=== PATIENT | male | born 1955 | race Caucasian/White ===

== ENCOUNTER 2020-05-15 08:27 | Emergency (ER) | payer OTHER, SELFPAY ==
[2020-05-15 08:57] VITALS: PULSE 60; RESP 16; TEMP 37; O2SAT 95; BMI 32.5
[2020-05-15 09:08] VITALS: BP 133/82; PULSE 53; RESP 20; O2SAT 94
[2020-05-15 09:16] LABS: Basophils % 0.7 %; Eosinophils # 0.3 10^3/uL (0.0-0.8); Eosinophils % 4.1 %; Hematocrit 47.7 % (42.0-52.0); Hemoglobin 15.7 g/dL (11.7-16.6); Lymphocytes # 1.8 10^3/uL (0.8-4.8); Lymphocytes % 29.9 %; Mean Corpuscular HGB Conc 32.9 g/dL (30.0-36.0); Mean Corpuscular Volume 91.2 fL (80-94); Mean Platelet Volume 10.7 fL (7.4-10.4); Monocytes # 0.5 10^3/uL (0.2-0.9); Monocytes % 8.8 %; Neutrophils # 3.4 10^3/uL (1.8-7.7); Neutrophils % 56.2 %; Nucleated Red Blood Cells % 0 %; Platelet Count 187 10^3/cmm (130-400); Red Blood Count 5.23 10^6/uL (4.1-5.3); Red Cell Distribution Width 12.1 % (12.1-15.1); White Blood Count 6.1 10^3/uL (4.0-10.0)
--- NOTE | 2020-05-15 09:17 | CT_ITS ---
WS: [id number] CT ABDOMEN AND PELVIS WITH CONTRAST HISTORY: RLQ pain; bloody stools TECHNIQUE: Imaging performed of the abdomen and pelvis with IV contrast. Single phase imaging of the abdomen. Coronal and sagittal reformats are submitted. All CT scans at [facility] use at least one of these dose optimization techniques: automated exposure control; mA and/or kV adjustment per patient size (includes targeted exams where dose is matched to clinical indication); or iterativ e reconstruction. IV CONTRAST: Omnipaque 300; 95 mL IV. Oral contrast: No DLP: 1565.07 mGy.cm COMPARISON: None available. Lower thorax: Lung bases are clear. Heart is normal size. No hiatal hernia. Liver/biliary system: Normal size with no intrahepatic dilatation. Gallbladder: Prior cholecystectomy. Pancreas: Normal. Spleen: Normal. Adrenal glands: Normal. Right kidney: Normal. Left kidney: Normal. Aorta: Mild atherosclerosis with no aneurysm. Lymphadenopathy: None. Free fluid: None. GI tract: Normal appendix. No GI tract obstruction. Mild lipomatous changes at the cecum are noted. T here is a lobulated soft tissue mass with fatty changes near the hepatic flexure measuring 3.5 x 2.5 x 1.9 cm. Due to size this could be causing some bleeding or intermittent obstruction/intussusception . A few scattered diverticula. No acute diverticulitis. Abdominal wall: Unremarkable abdominal wall. No hernia. Pelvis: Well-distended urinary bladder. No free fluid. Bones: Unremarkable. Notified KYLEE Leo at 05/15/2020 11:[address]/CT abdomen pelvis w con* [id number] IMPRESSION: 1. Normal appendix. 2. Lobulated fat density mass near the hepatic flexure measures 3.5 x 2.5 x 1. 9 cm. Most consistent with a lipoma. Due to its size this could cause intermitt ent obstruction or bleeding. 3. Status post cholecystectomy.
--- NOTE | 2020-05-15 09:18 | W.ED.ABDPA2 ---
HPI - Abdominal Pain General: Chief Complaint: Abdominal Pain Stated Complaint: ABD PAIN/BLOOD IN STOOL Time Seen by Provider: 05/15/20 09:01 Source: patient Mode of arrival: ambulatory Limitations: no limitations History of Present Illness: HPI narrative: Patient is a very nice 64-year-old male who presents to ED today with a complaint of right lower quadrant abdominal pain and noticeably bloody stools over the past 4 days. Patient tells me pain in his abdomen has been fairly constant since onset. 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 He describes amount of blood being approximately half dollar sized. He has not noticed any dark black stools. He is not having any vomiting. He states his last colonoscopy was approximately 10 years ago and was normal. He has recently underwent a fecal sample for colon screening that came back normal. Patient has not been running fevers. Previous abdominal surgeries include a cholecystectomy. MD elicited complaint: abdominal pain and other (bloody stools) Pain Consistency: constant Location: RLQ Radiation: none Migration to: no migration Associated Symptoms: Reports hematochezia; Denies chills, coffee ground emesis, dysuria, fever(s), heartburn, hematemesis, melena, nausea and vomiting Review of Systems Const: Denies: fever(s), chills, body aches, fatigue or malaise Card: Denies: chest pain Resp: Denies: dyspnea GI: Reports: abdominal pain and hematochezia; Denies: nausea, vomiting, hematemesis, coffee ground emesis, heartburn, pain on defecation or melena : Denies: flank pain, difficulty urinating, dysuria, urinary frequency or urinary urgency Musc: Denies: neck pain, back pain, extremity pain, extremity swelling, joint pain or joint swelling Skin/Breast: Denies: rash Neuro: Denies: headache(s), numbness in extremities, weakness in extremities or sensory changes Physical Exam Const: COMMON NORMALS: no acute distress, average body habitus, patient oriented x3, no limitations, healthy appearing, alert and well nourished HENMT: COMMON NORMALS: normocephalic and atraumatic HEAD & SCALP: normocephalic and atraumatic Chest: COMMONS NORMALS: normal inspection of the chest and normal palpation of entire chest wall Resp: COMMON NORMALS: normal respiratory effort and clear to auscultation bilaterally AUSCULTATION: clear to auscultation bilaterally Cardio: COMMON NORMALS: regular rate and regular rhythm RATE: regular rate RHYTHM: regular rhythm GI: COMMON NORMALS: Normal to inspection, nondistended, normoactive bowel sounds present, Soft to palpation, No hepatosplenomegaly present and no masses AUSCULTATION: Yes normoactive bowel sounds PALPATION: Yes Soft to palpation, Yes Tenderness to palpation present (GI) (LUQ, LLQ, and RLQ; most of pain localized to RLQ) and Yes No hepatosplenomegaly present RECTAL EXAM: Yes heme negative stool : COMMON NORMALS: Yes no CVA tenderness BLADDER/KIDNEY EXAM: Yes no CVA tenderness Back/Pelvis: COMMON NORMALS: no CVA tenderness Extremity: COMMON NORMALS: capillary refill normal, no clubbing, cyanosis or edema, no calf tenderness and no pedal edema Neuro: COMMON NORMALS: patient oriented x3 SENSORIUM/ORIENTATION: Yes alert Skin: COMMON NORMALS: no rashes or lesions noted GENERAL SKIN EXAM: no rashes or lesions noted Course Vital Signs: Vital signs: Vital Signs Temperature 98.6 F 05/15/20 08:57 Pulse Rate 54 L 05/15/20 09:30 Respiratory Rate 16 05/15/20 09:30 Blood Pressure 172/88 05/15/20 09:30 Pulse Oximetry 95 05/15/20 09:30 MDM - Abdominal Pain MDM Narrative: Medical decision making narrative: Patient is a nice 64-year-old gentleman here for right-sided abdominal pain and some blood in his stools he has noticed over the past 4 days. Evaluation of his labs are non-concerning at this time. He has a negative hemoccult here. Vitals are stable. CT abdomen/pelvis showing a colonic lipoma that could be responsible for the small amount of bleeding. He has no evidence of obstruction at this time. He states [facility] and referral for colonoscopy/general surgery if indicated. Return to ED precautions given. Lab Data: Labs: Lab Results 05/15/20 05/15/20 05/15/20 Range/Units 09:08 09:08 09:08 WBC 6.1 (4.0-10.0) 10^3/ uL RBC 5.23 (4.1-5.3) 10^6/u L Hgb 15.7 (11.7-16.6) g/dL Hct 47.7 (42.0-52.0) % MCV 91.2 (80-94) fL MCH 30.0 (28.0-34.0) pg MCHC 32.9 (30.0-36.0) g/dL RDW 12.1 (12.1-15.1) % Plt Count 187 (130-400) 10^3/c mm MPV 10.7 H (7.4-10.4) fL Neut % (Auto) 56.2 % Lymph % (Auto) 29.9 % Greer % (Auto) 8.8 % Eos % (Auto) 4.1 % Baso % (Auto) 0.7 % Neut # (Auto) 3.4 (1.8-7.7) 10^3/u L Lymph # (Auto) 1.8 (0.8-4.8) 10^3/u L Greer # (Auto) 0.5 (0.2-0.9) 10^3/u L Eos # (Auto) 0.3 (0.0-0.8) 10^3/u L Baso # (Auto) 0.0 (0.0-0.1) 10^3/u L Nucleated RBC % (a uto) 0 % Nucleated RBCs # 0.0 /100WBC PT 12.80 (10.5-13.3) SECO NDS INR 0.94 (0.8-1.2) APTT 27.6 (23.9-36.7) SECO NDS Sodium 138 (136-145) mmol/L Potassium 3.9 (3.5-5.1) mmol/L Chloride 103 (98-107) mmol/L Carbon Dioxide 23 (22-29) mmol/L Anion Gap 15.9 (5-19) BUN 11 (8-23) mg/dL Creatinine 0.9 (0.7-1.2) mg/dL GFR Calculation 85.0 L (90-130) mL/min Glucose 119 H (65-115) mg/dL Calculated Osmolal ity 283 L (285-295) mOsm/k g Calcium 8.9 (8.5-10.5) mg/dL Total Bilirubin 0.5 (0.15-1.2) mg/dL AST 24 (0-40) U/L ALT 44 H (0-41) U/L Alkaline Phosphata se 64 (40-130) IU/L Total Protein 7.2 (6.6-8.7) g/dL Albumin 4.4 (3.5-5.2) g/dL Globulin 2.8 (1.3-4.6) g/dL Lipase 19 (13-60) U/L Urine Color (Yellow) Urine Appearance (CLEAR) Urine pH (5-7) Ur Specific Gravit y (1.005-1.030) Urine Protein (Negative) Urine Glucose (UA) (Normal) Urine Ketones (Negative) Urine Blood (Negative) Urine Nitrate (Negative) Urine Bilirubin (NEGATIVE) Urine Urobilinogen (Negative) mg/dL Ur Leukocyte Lenka ase (Negative) 05/15/20 Range/Units 09:37 WBC (4.0-10.0) 10^3/ uL RBC (4.1-5.3) 10^6/u L Hgb (11.7-16.6) g/dL Hct (42.0-52.0) % MCV (80-94) fL MCH (28.0-34.0) pg MCHC (30.0-36.0) g/dL RDW (12.1-15.1) % Plt Count (130-400) 10^3/c mm MPV (7.4-10.4) fL Neut % (Auto) % Lymph % (Auto) % Greer % (Auto) % Eos % (Auto) % Baso % (Auto) % Neut # (Auto) (1.8-7.7) 10^3/u L Lymph # (Auto) (0.8-4.8) 10^3/u L Greer # (Auto) (0.2-0.9) 10^3/u L Eos # (Auto) (0.0-0.8) 10^3/u L Baso # (Auto) (0.0-0.1) 10^3/u L Nucleated RBC % (a uto) % Nucleated RBCs # /100WBC PT (10.5-13.3) SECO NDS INR (0.8-1.2) APTT (23.9-36.7) SECO NDS Sodium (136-145) mmol/L Potassium (3.5-5.1) mmol/L Chloride (98-107) mmol/L Carbon Dioxide (22-29) mmol/L Anion Gap (5-19) BUN (8-23) mg/dL Creatinine (0.7-1.2) mg/dL GFR Calculation (90-130) mL/min Glucose (65-115) mg/dL Calculated Osmolal ity (285-295) mOsm/k g Calcium (8.5-10.5) mg/dL Total Bilirubin (0.15-1.2) mg/dL AST (0-40) U/L ALT (0-41) U/L Alkaline Phosphata se (40-130) IU/L Total Protein (6.6-8.7) g/dL Albumin (3.5-5.2) g/dL Globulin (1.3-4.6) g/dL Lipase (13-60) U/L Urine Color Yellow (Yellow) Urine Appearance Clear (CLEAR) Urine pH 5 (5-7) Ur Specific Gravit y 1.015 (1.005-1.030) Urine Protein Neg (Negative) Urine Glucose (UA) Norm (Normal) Urine Ketones Negative (Negative) Urine Blood Neg (Negative) Urine Nitrate Negative (Negative) Urine Bilirubin Neg (NEGATIVE) Urine Urobilinogen Norm (Negative) mg/dL Ur Leukocyte Lenka ase Negative (Negative) Imaging Data ^: CT Abd/Pel: Radiologist's impression: [place] [address] CT Scan Report Signed Patient: Carl Khan Unit #: [id number] : 1955 Age/Sex: 64 / M ADM Date: 05/15/20 Loc: ER Room/Bed: Attending Dr: Ordering Provider/Ordering MD: Nena Sanchez Date of Service: 05/15/20 Procedure(s): CT abdomen pelvis w con* [id number] Accession Number(s): [id number] Report Number: [id number] WS: [id number] CT ABDOMEN AND PELVIS WITH CONTRAST HISTORY: RLQ pain; bloody stools TECHNIQUE: Imaging performed of the abdomen and pelvis with IV contrast. Single phase imaging of the abdomen. Coronal and sagittal reformats are submitted. All CT scans at [facility] use at least one of these dose optimization techniques: automated exposure control; mA and/or kV adjustment per patient size (includes targeted exams where dose is matched to clinical indication); or iterative reconstruction. IV CONTRAST: Omnipaque 300; 95 mL IV. Oral contrast: No DLP: 1565.07 mGy.cm COMPARISON: None available. Lower thorax: Lung bases are clear. Heart is normal size. No hiatal hernia. Liver/biliary system: Normal size with no intrahepatic dilatation. Gallbladder: Prior cholecystectomy. Pancreas: Normal. Spleen: Normal. Adrenal glands: Normal. Right kidney: Normal. Left kidney: Normal. Aorta: Mild atherosclerosis with no aneurysm. Lymphadenopathy: None. Free fluid: None. GI tract: Normal appendix. No GI tract obstruction. Mild lipomatous changes at the cecum are noted. There is a lobulated soft tissue mass with fatty changes near the hepatic flexure measuring 3.5 x 2.5 x 1.9 cm. Due to size this could be causing some bleeding or intermittent obstruction/intussusception. A few scattered diverticula. No acute diverticulitis. Abdominal wall: Unremarkable abdominal wall. No hernia. Pelvis: Well-distended urinary bladder. No free fluid. Bones: Unremarkable. Notified KYLEE Leo at 05/15/2020 11:[address]/CT abdomen pelvis w con* [id number] IMPRESSION: 1. Normal appendix. 2. Lobulated fat density mass near the hepatic flexure measures 3.5 x 2.5 x 1.9 cm. Most consistent with a lipoma. Due to its size this could cause intermittent obstruction or bleeding. 3. Status post cholecystectomy. Dictated By: Melida Melendez DO Signed By: Melida Melendez DO Signed Date/Time: 05/15/20 1116 DD/ 1101 Discharge Plan Discharge Patient Disposition: Home, Self-Care Clinical Impression: Lipoma of colon Condition: Stable Prescriptions: No Action No Known Home Medications RF: 0 Discharge Orders: Discharge Order (Routine); Ordered 05/15/20 Ordered By: Nena Sanchez Referrals: [facility] [Primary Care Provider] - Activity Restrictions/Additional Instructions: As discussed [facility] They may wish to refer you to a provider for a colonoscopy. Return to the emergency department for worsening pain, inability to pass gas or have a bowel movement, fevers, repetitive vomiting, or any other concerns you may have. Coding Level of Care Code ED Ground Nuclear Weapons Assembly Officer for Chg Fwd Exam Comprehensive
[2020-05-15 09:30] VITALS: BP 172/88; PULSE 54; RESP 16; O2SAT 95
[2020-05-15 09:33] LABS: Alanine Aminotransferase 44 U/L (0-41); Albumin Level 4.4 g/dL (3.5-5.2); Alkaline Phosphatase 64 IU/L (40-130); Anion Gap 15.9 (5-19); Aspartate Amino Transferase 24 U/L (0-40); Blood Urea Nitrogen 11 mg/dL (8-23); Calcium 8.9 mg/dL (8.5-10.5); Carbon Dioxide 23 mmol/L (22-29); Chloride 103 mmol/L (98-107); Globulin 2.8 g/dL (1.3-4.6); Glucose 119 mg/dL (65-115); Lipase 19 U/L (13-60); Osmolality Calculated 283 mOsm/kg (285-295); Potassium 3.9 mmol/L (3.5-5.1); Sodium 138 mmol/L (136-145); Total Bilirubin 0.5 mg/dL (0.15-1.2); Total Protein 7.2 g/dL (6.6-8.7)
[2020-05-15 09:38] LABS: INR 0.94 (0.8-1.2)
[2020-05-15 09:55] LABS: Add Urine Microscopic? NO
[2020-05-15] MEDS: iohexol 300 mg/mL 100 mL Btl IV (10:52)
[2020-05-15 10:55] LABS: Bilirubin Urine Neg (NEGATIVE); Blood Urine Neg (Negative); Glucose Urine UA Norm (Normal); Ketones Urine Negative (Negative); Leukocyte Esterase Urine Negative (Negative); Nitrate Urine Negative (Negative); Protein Urine Neg (Negative); Specific Gravity, Urine 1.015 (1.005-1.030); Urine Appearance Clear (CLEAR); Urine Color Yellow (Yellow); Urobilinogen Urine Norm (Negative); pH Urine 5 (5-7)
[2020-05-15 10:56] LABS: Partial Thromboplastin Time 27.6 SECONDS (23.9-36.7)
[2020-05-15 11:29] VITALS: BP 165/79; PULSE 73; RESP 16; O2SAT 98
[2020-05-15 11:46] VITALS: BP 165/79; PULSE 62; RESP 18; O2SAT 95
== END 2020-05-15 11:49 | disposition home or self-care (01) ==
PROVIDERS: Emergency Provider Physician Assistant
DX: D17.79 Benign lipomatous neoplasm of other sites (principal)
CPT/HCPCS: 12345; 36415; 74177; 80053; 81003; 83690; 85025; 85610; 85730; 99283; Q9967

== ENCOUNTER 2020-06-04 08:41 | Day surgery (SDC) | payer OTHER, SELFPAY ==
[2020-05-31 12:30] VITALS: BMI 33.2
--- NOTE | 2020-06-04 09:45 | P.ANESASSM_ITS ---
Pre-Anesthetic Assessment Pre-Anesthetic Assessment: Height/Weight: Height 1.75 m Weight 102.058 kg Preop Diagnosis: Hematochezia Proposed Procedure: Operation Date: 06/04/20 10:30 Proposed Procedures p Colonoscopy with poss biopsy and poss polypectomy 25846 K92.1(Not Applicable) - Jose Hameed MD Was Beta Chance taken within 24 hours: N/A Social: Social History: No alcohol and No tobacco Exam: Pre-Anes Outpt Exam: alert, oriented x 3, clear to auscultation bila terally and regular rate & rhythm Airway: Submandibular: WNL Cervical ROM: WNL MP: 2 Dentition: Full Pulmonary: Comments: snores CV/HEM: CV/HEM: None reported : : None reported Hepatic: Hepatic: None reported GI: Comments: gallbladder removed 04/2019 Metabolic: Metabolic: None reported Musc/skel: Musc/skel: None reported Neuropsych: Neuropsych: None reported Anesthetic Plan: ASA status: 2 Anesthesia: Anesthesia Evaluation and MAC Risk of > 500 ml blood loss (7ml/kg in children): No PFSH Anesthesia PFSH: Surgical History H/O circumcision H/O colonoscopy 10 years ago H/O esophagogastroduodenoscopy 10 years ago H/O hernia repair Hx of cholecystectomy Family History Mother Cancer lung Denies family history of Diabetes CAD (coronary artery disease) Anesthesia complication Bleeding disorder Social History Smoking and tobacco status: never smoked Alcohol intake: current Alcohol intake frequency: holidays/special occasions only Household members: spouse Marital status: Current occupational status: retired History of recent travel: No Data Anesthesia Cardiac Studies: No Data to Display
[2020-06-04 09:49] VITALS: BP 172/86; PULSE 63; RESP 18; TEMP 36.4; O2SAT 97
[2020-06-04] MEDS: sodium chloride 0.9% 1,000 ML 30 ML IV (09:52)
--- NOTE | 2020-06-04 10:53 | W.PM.OPSUD ---
Surgery/Procedure H&P Update DATE OF PROCEDURE: June 04, 2020 DATE H&P PERFORMED: 05/28/20 H&P UPDATE INFORMATION: I have reviewed H&P completed within last 30 days, I have examined patient prior to procedure and No changes to prior documentation PREOP DIAGNOSIS: Hematochezia PLANNED PROCEDURE: Operation Date: 06/04/20 10:30 Proposed Procedures p Colonoscopy with poss biopsy and poss polypectomy 67479 K92.1(Not Applicable) - Jose Hameed MD
[2020-06-04 11:11] VITALS: BP 124/69; PULSE 63; RESP 18; TEMP 36.6; O2SAT 96
--- NOTE | 2020-06-04 11:17 | ANE.PACU2 ---
Inpatient post-anesthesia follow up: Airway intact: Yes Vital signs: Temperature 98 F Pulse Rate 63 Respiratory Rate 18 Blood Pressure 124/69 Pulse Oximetry 96 Oxygen Delivery Me thod Room Air Oxygen Flow Rate Fraction of Inspir ed Oxygen Hydration adequate: Yes Nausea and vomiting: No Pain level: 1 Mental status: Baseline
== END 2020-06-04 11:35 | disposition home or self-care (01) ==
PROVIDERS: PCP Emergency Medicine Emergency Medical Services; Visit Provider Surgery
PROC: 0DJD8ZZ Inspection of Lower Intestinal Tract, Via Natural or Artificial Opening Endoscopic (ICD-10-PCS; CPT 45378; principal; 2020-06-04 10:30)
DX: K92.1 Melena (principal); D17.5 Benign lipomatous neoplasm of intra-abdominal organs; K57.30 Diverticulosis of large intestine without perforation or abscess without bleeding; K64.8 Other hemorrhoids; Z90.49 Acquired absence of other specified parts of digestive tract
CPT/HCPCS: 12345; 45381; J2704

== ENCOUNTER → 2022-12-16 08:44 | Outpatient (BNVA) | payer OTHER, SELFPAY | PROVIDERS: PCP Emergency Medicine Emergency Medical Services; Visit Provider Podiatrist Foot & Ankle Surgery | DX: G57.62 Lesion of plantar nerve, left lower limb (principal); M21.41 Flat foot [pes planus] (acquired), right foot; M21.42 Flat foot [pes planus] (acquired), left foot | CPT/HCPCS: 20550; 73630; 99204 ==

== ENCOUNTER → 2023-01-11 15:00 | Outpatient (BNVA) | payer OTHER, SELFPAY | PROVIDERS: PCP Emergency Medicine Emergency Medical Services; Visit Provider Podiatrist Foot & Ankle Surgery | DX: G57.62 Lesion of plantar nerve, left lower limb (principal); M21.41 Flat foot [pes planus] (acquired), right foot; M21.42 Flat foot [pes planus] (acquired), left foot | CPT/HCPCS: 99213 ==

== ENCOUNTER → 2023-02-10 10:49 | Outpatient (BNVA) | payer OTHER, SELFPAY | PROVIDERS: PCP Emergency Medicine Emergency Medical Services; Visit Provider Podiatrist Foot & Ankle Surgery | DX: G57.62 Lesion of plantar nerve, left lower limb (principal); M21.41 Flat foot [pes planus] (acquired), right foot; M21.42 Flat foot [pes planus] (acquired), left foot | CPT/HCPCS: 64455; J1100; J3301; J3490 ==

== ENCOUNTER → 2023-03-17 09:39 | Outpatient (BNVA) | payer OTHER, SELFPAY | PROVIDERS: PCP Emergency Medicine Emergency Medical Services; Visit Provider Podiatrist Foot & Ankle Surgery | DX: G57.62 Lesion of plantar nerve, left lower limb (principal); M21.41 Flat foot [pes planus] (acquired), right foot; M21.42 Flat foot [pes planus] (acquired), left foot | CPT/HCPCS: 99213 ==

== ENCOUNTER → 2024-04-17 08:40 | Outpatient (BNVA) | payer OTHER, SELFPAY | PROVIDERS: PCP Emergency Medicine Emergency Medical Services; Visit Provider Podiatrist Foot & Ankle Surgery | DX: G57.62 Lesion of plantar nerve, left lower limb (principal); L30.9 Dermatitis, unspecified | CPT/HCPCS: 99213 ==

== ENCOUNTER 2024-07-05 09:20 | Emergency (ER) | payer OTHER, MEDICARE, SELFPAY ==
--- NOTE | 2024-07-05 09:26 | ECG_ITS ---
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 Measurements Intervals [place] Rate: 57 P: 48 NE: 222 QRS: 56 QRSD: 103 T: 137 QT: 390 QTc: 381 Interpretive Statements SINUS BRADYCARDIA WITH FIRST DEGREE AV BLOCK NONSPECIFIC ST & T-WAVE ABNORMALITY No previous ECG available for comparison Electronically Signed On 07-06-2024 8:57:55 CDT by Rodrick Iverson M.D. [id number]
--- NOTE | 2024-07-05 09:26 | XR_ITS ---
WS: [id number] Exam: XR chest 1V portable [id number] Date/Time of Exam: 07/05/2024 9:36 AM Reason For Exam: sob No priors. The lungs are clear. Normal cardiomediastinal silhouette for AP portable technique. No pleural effusi ons. Normal bony elements. XR/XR chest 1V portable [id number] IMPRESSION: 1. Negative chest.
[2024-07-05 09:36] VITALS: BP 175/83; PULSE 63; RESP 18; TEMP 36.7; O2SAT 94; BMI 33.6
[2024-07-05 09:55] LABS: Basophils # 0.1 10^3/uL (0.0-0.1); Basophils % 0.7 %; Eosinophils # 0.4 10^3/uL (0.0-0.8); Eosinophils % 5.3 %; Hematocrit 44.5 % (37-53); Lymphocytes % 26.1 %; Mean Corpuscular HGB Conc 33.9 g/dL (30-55); Mean Corpuscular Hemoglobin 31.1 pg (27-33); Mean Corpuscular Volume 91.6 fl (82-101); Mean Platelet Volume 10.8 fL (7.4-10.4); Monocytes # 0.6 10^3/uL (0.2-0.9); Monocytes % 7.7 %; Neutrophils # 4.54 10^3/uL (1.8-7.7); Neutrophils % 59.9 %; Nucleated Red Blood Cells % 0 %; Platelet Count 197 10^3/cmm (157-399); Red Blood Count 4.86 10^6/uL (3.85-5.65); Red Cell Distribution Width 11.9 % (12.1-15.1); White Blood Count 7.56 10^3/uL (3.29-11.43)
--- NOTE | 2024-07-05 10:00 | ED_ITS ---
HPI - SOB/Dyspnea 2 General: Chief Complaint: Shortness of Breath/Dyspnea Stated Complaint: [facility] Time Seen by Provider: 07/05/24 09:44 Source: patient Mode of arrival: ambulatory Limitations: no limitations History of Present Illness: HPI Narrative: 68-year-old male states been having coug h along with shortness of breath for the last week. He denies any history of COPD or CHF. He states that his dyspnea seems much worse when he lays flat he denies having any chest pains denies any fever states he [facility] the [facility] he is given a Z-Carl has had no improvement. Pulse ox here is normal on room air. Associated symptoms: Deny abdominal pain, chest pain, fever(s), nausea or vomiting Related Data Home Medications Medication Instructions Recorded Confirmed cholecalciferol (vitamin D3) 50 1 tab PO DAILY 12/16/22 07/05/24 mcg (2,000 unit) tablet (Vitamin D3) famotidine 20 mg tablet 20 mg PO DAILY 12/16/22 07/05/24 lisinopril 20 mg tablet 10 mg PO DAILY 12/16/22 07/05/24 meloxicam 15 mg tablet 15 mg PO DAILY PRN pain or 12/16/22 07/05/24 inflammation sildenafil 100 mg tablet See Rx Instructions .Route .COMPLEX 12/16/22 07/05/24 rosuvastatin 20 mg tablet 10 mg PO QPM 04/17/24 07/05/24 Previous Rx's Medication Instructions Recorded Custom Molded Orthotics #1 ea 03/17/23 terbinafine HCl 1 % topical cream 1 applic topical BID 7 days #30 04/17/24 (Antifungal (terbinafine)) grams triamcinolone acetonide 0.1 % 1 applic topical TID #30 grams 05/26/24 topical cream Allergies Allergy/AdvReac Type Severity Reaction Status Date / Time No Known Allergies Allergy Verified 04/17/24 08:49 Review of Systems 2 Const: Denies: fever(s), chills, body aches or change in appetite ENMT: Denies: throat pain or dental pain Card: Denies: chest pain Resp: Reports: dyspnea and non-productive cough GI: Denies: abdominal pain, nausea, vomiting or diarrhea Musc: Denies: neck pain or back pain Skin/Breast: Denies: rash Neuro: Denies: headache(s) COUNT INCLUDES THE [facility] ED 2 PFSH: Medical History Lipoma of colon Surgical History Hx of cholecystectomy H/O hernia repair H/O circumcision H/O colonoscopy (06/04/20) diverticulosis, hepatic flexure lipoma, repeat 10 years H/O esophagogastroduodenoscopy 10 years ago Family History Mother Cancer lung Denies family history of Diabetes CAD (coronary artery disease) Anesthesia complication Bleeding disorder Social History Smoking and tobacco/nicotine status: former use of tobacco/nicotine Alcohol intake: current Alcohol intake frequency: holidays/special occasions only Substance/Drug Use: never Household members: spouse Marital status: Current occupational status: retired Physical Exam 2 Const: COMMON NORMALS: no acute distress, patient oriented x3 and healthy appearing HENMT: COMMON NORMALS: normocephalic and atraumatic HEAD & SCALP: n ormocephalic and atraumatic Neck/C-Spine: COMMON NORMALS: full ROM and supple Chest: COMMONS NORMALS: normal inspection of the chest Resp: COMMON NORMALS: normal respiratory effort, No retractions, No use of accessory muscles and clear to auscultation bilaterally AUSCULTATION: clear to auscultation bilaterally Cardio: COMMON NORMALS: regular rate, regular rhythm and No murmurs present (Cardio) RATE: regular rate RHYTHM: regular rhythm Extremity: COMMON NORMALS: normal to inspection and full ROM NARRATIVE EXTREMITY EXAM: no lower extremity swelling noted Neuro: COMMON NORMALS: patient oriented x3, moves all extremities and no focal motor deficits Psych: COMMON NORMALS: mental status grossly normal, Normal thought process present and cooperative THOUGHT PROCESS: Normal thought process present Skin: COMMON NORMALS: no rashes or lesions noted and no wounds GENERAL SKIN EXAM: no rashes or lesions noted Course 2 Vital Signs: Vital signs: Vital Signs Temperature 98.1 F 07/05/24 09:36 Pulse Rate 59 L 07/05/24 11:26 Respiratory Rate 16 07/05/24 11:26 Blood Pressure 175/83 07/05/24 09:36 Pulse Oximetry 97 07/05/24 11:26 Oxygen Delivery Me thod Room Air 07/05/24 11:26 MDM - SOB/Dyspnea Medical Decision Making Patient presents with cough has been having shortness of breath did have positive COVID test are likely causing his symptoms CT showed no signs of pneumonia is no signs of heart failure no signs of pulmonary embolism he feels better here after Decadron he is to follow-up with PCP return if worsening he understands agrees to plan. Medical Records I reviewed the patient's medical records. Lab Data I reviewed the patient's lab results. 07/05/24 09:40 07/05/24 09:40 Labs/Radiology: Radiology Impressions Chest X-Ray 07/05/24 09:26 IMPRESSION: 1. Negative chest. Chest CTA 07/05/24 10:33 IMPRESSION: 1. No evidence of pulmonary embolus 2. No focal pneumonia or pleural fluid. Slight bibasilar atelectasis. 3. No acute pulmonary infiltrates. Laboratory Results WBC 7.56 10^3/uL (3.29-11.43) 07/05/24 09:40 RBC 4.86 10^6/uL (3.85-5.65) 07/05/24 09:40 Hgb 15.10 g/dL (11.27-16.99) 07/05/24 09:40 Hct 44.5 % (37-53) 07/05/24 09:40 MCV 91.6 fl (82-101) 07/05/24 09:40 MCH 31.1 pg (27-33) 07/05/24 09:40 MCHC 33.9 g/dL (30-55) 07/05/24 09:40 RDW 11.9 % (12.1-15.1) L 07/05/24 09:40 Plt Count 197 10^3/cmm (157-399) 07/05/24 09:40 MPV 10.8 fL (7.4-10.4) H 07/05/24 09:40 Neut % (Auto) 59.9 % 07/05/24 09:40 Lymph % (Auto) 26.1 % 07/05/24 09:40 [place] % (Auto) 7.7 % 07/05/24 09:40 Eos % (Auto) 5.3 % 07/05/24 09:40 Baso % (Auto) 0.7 % 07/05/24 09:40 Neut # (Auto) 4.54 10^3/uL (1.8-7.7) 07/05/24 09:40 Lymph # (Auto) 2.0 10^3/uL (0.8-4.8) 07/05/24 09:40 [place] # (Auto) 0.6 10^3/uL (0.2-0.9) 07/05/24 09:40 Eos # (Auto) 0.4 10^3/uL (0.0-0.8) 07/05/24 09:40 Baso # (Auto) 0.1 10^3/uL (0.0-0.1) 07/05/24 09:40 Nucleated RBC % (auto) 0 % 07/05/24 09:40 Nucleated RBCs # 0.0 /100WBC 07/05/24 09:40 D-Dimer 0.72 ug/mLFEU (0-0.59) H 07/05/24 09:40 Sodium 139 mmol/L (136-145) 07/05/24 09:40 Potassium 4.1 mmol/L (3.5-5.1) 07/05/24 09:40 Chloride 105 mmol/L (98-107) 07/05/24 09:40 Carbon Dioxide 21 mmol/L (22-29) L 07/05/24 09:40 Anion Gap 17.1 (5-19) 07/05/24 09:40 BUN 19 mg/dL (8-23) 07/05/24 09:40 Creatinine 0.9 mg/dL (0.7-1.2) 07/05/24 09:40 GFR Calculation 83.9 mL/min (90-130) L 07/05/24 09:40 Glucose 127 mg/dL (65-115) H 07/05/24 09:40 Calculated Osmolality 292 mOsm/kg (285-295) 07/05/24 09:40 Calcium 9.0 mg/dL (8.5-10.5) 07/05/24 09:40 Total Bilirubin 0.3 mg/dL (0.15-1.2) 07/05/24 09:40 AST 24 U/L (0-40) 07/05/24 09:40 ALT 38 U/L (0-41) 07/05/24 09:40 Alkaline Phosphatase 70 U/L (40-130) 07/05/24 09:40 NT-Pro-B Natriuret Pep 175 pg/mL (0-125) H 07/05/24 09:40 Total Protein 7.3 g/dL (6.6-8.7) 07/05/24 09:40 Albumin 4.3 g/dL (3.5-5.2) 07/05/24 09:40 Globulin 3.0 g/dL (1.3-4.6) 07/05/24 09:40 SARS-CoV-2 Ag (Rapid) positive (Negative) H 07/05/24 10:05 All radiology interpretation(s) finalized by discharge EKG Data EKG 1: I personally reviewed and interpreted this EKG as follows: EKG Interpretation Date: 07/05/24 EKG interpretation time: 09:26 Interpretation: sinus ami hr [address] elevation qrs 103 qtc 384 Discharge Plan Discharge Patient Disposition: Home Clinical Impression: COVID-19 Condition: Stable Prescriptions: No Action sildenafil 100 mg tablet See Rx Instructions .ROUTE .COMPLEX Rx Instructions: Take 0.5 tablet by mouthonce weekly as needed for erectile dysfunction. Take 60 minutes prior to sexual activity. Limit 6 doses per 30 days. meloxicam 15 mg tablet 15 mg PO DAILY PRN (Reason: pain or inflammation) cholecalciferol (vitamin D3) [Vitamin D3] 50 mcg (2,000 unit) tablet 1 tab PO DAILY lisinopril 20 mg tablet 10 mg PO DAILY famotidine 20 mg tablet 20 mg PO DAILY (DME) Custom Molded Orthotics See Rx Instructions .Route .MEDSUPPLY Qty: 1 0RF Rx Instructions: As directed by [facility] rosuvastatin 20 mg tablet 10 mg PO QPM terbinafine HCl [Antifungal (terbinafine)] 1 % cream 1 applic topical BID 7 Days Qty: 30 2RF triamcinolone acetonide 0.1 % cream 1 applic topical TID Qty: 30 2RF Discharge Orders: Discharge ED (Routine); Ordered 07/05/24 Ordered By: Felisha Jaramillo Discharge Diet: Advance as tolerated Discharge Activity: Resume usual activity Patient Instructions: COVID-19 (Coronavirus Disease 2019) (ED) Coding Level of Care Code ED Agricultural Produce Packer for Mojgan Cornelius
[2024-07-05] MEDS: dexamethasone 10 mg/mL INJ IVP (10:04)
[2024-07-05 10:24] LABS: Alanine Aminotransferase 38 U/L (0-41); Albumin Level 4.3 g/dL (3.5-5.2); Alkaline Phosphatase 70 U/L (40-130); Anion Gap 17.1 (5-19); Aspartate Amino Transferase 24 U/L (0-40); Blood Urea Nitrogen 19 mg/dL (8-23); Carbon Dioxide 21 mmol/L (22-29); Chloride 105 mmol/L (98-107); Creatinine Clr Calc Pharmacy 93.0973; Glomerular Filtration Rate 83.9 mL/min (90-130); Glucose 127 mg/dL (65-115); NT Pro B Type Natriuretic Pept 175 pg/mL (0-125); Osmolality Calculated 292 mOsm/kg (285-295); Potassium 4.1 mmol/L (3.5-5.1); Sodium 139 mmol/L (136-145); Total Bilirubin 0.3 mg/dL (0.15-1.2); Total Protein 7.3 g/dL (6.6-8.7)
[2024-07-05 10:32] LABS: D Dimer 0.72 ug/mLFEU (0-0.59)
--- NOTE | 2024-07-05 10:33 | CT_ITS ---
WS: [id number] CTA OF THE CHEST WITH PULMONARY EMBOLISM PROTOCOL TECHNIQUE: High-resolution contrast enhanced CTA of the chest with coronal and sagittal reformatted i mages with pulmonary embolism protocol. MIP images are also reviewed. CLINICAL INFORMATION: sob COMPARISON: None. DLP: 479.[address] scans at [facility] use at least one of these dose optimization techniques: automated e xposure control; mA and/or kV adjustment per patient size (includes targeted exams where dose is matc hed to clinical indication); or iterative reconstruction. FINDINGS: Proximal main pulmonary arteries are normal. Normal segmental and subsegmental pulmonary arteries. N o evidence of pulmonary embolus. No focal pneumonia or pleural fluid. Slight bibasilar atelectasis. N o acute pulmonary infiltrates. Normal caliber thoracic aorta. No mediastinal or hilar lymphadenopathy . No axillary lymphadenopathy. Adrenal glands are normal. Cholecystectomy clips. Normal GE junction. Mild thoracic curve. Mild thora cic kyphosis. CT/CT angio chest PE protcl [id number] IMPRESSION: 1. No evidence of pulmonary embolus 2. No focal pneumonia or pleural fluid. Slight bibasilar atelectasis. 3. No acute pulmonary infiltrates.
--- NOTE | 2024-07-05 10:35 | PC.PHAR ---
[facility] 06/2824 10:34am
[2024-07-05] MEDS: iohexol 350 mg/mL 500 mL Btl (per mL) IV (10:43)
[2024-07-05 11:00] LABS: SARS Covid-2 Antigen positive (Negative)
[2024-07-05] MEDS: ipratropium-albuterol 3 mL Neb INHALATION (11:25)
[2024-07-05 11:26] VITALS: PULSE 59; RESP 16; O2SAT 97
[2024-07-05 11:39] VITALS: PULSE 67; RESP 15; O2SAT 92
[2024-07-05 12:09] VITALS: BP 181/71; PULSE 75; RESP 18; O2SAT 97
== END 2024-07-05 12:10 | disposition home or self-care (01) ==
PROVIDERS: Emergency Provider Emergency Medicine
DX: U07.1 COVID-19 (principal); R00.1 Bradycardia, unspecified; Z87.891 Personal history of nicotine dependence
CPT/HCPCS: 36415; 71045; 71275; 80053; 83880; 85025; 85378; 87426; 93005; 94640; 96374; 99285; J1100; Q9967

== ENCOUNTER 2024-07-09 13:44 | Emergency (ER) | payer OTHER, MEDICARE, SELFPAY ==
--- NOTE | 2024-07-09 13:47 | XRR_ITS ---
PROCEDURE INFORMATION: Exam: XR Chest Exam date and time: 07/09/2024 2:01 PM Age: 68 years old Clinical indication: Shortness of breath; Additional info: SOB TECHNIQUE: Imaging protocol: Radiologic exam of the chest. Views: 1 view. COMPARISON: CT angio chest PE protcl [id number] 07/05/2024 10:40 AM FINDINGS: Lungs: Unremarkable. No consolidation or mass. Pleural spaces: Unremarkable. No pleural effusion. No pneumothorax. Heart/Mediastinum: Unremarkable. No cardiomegaly. Bones/joints: Unremarkable. XR/XR chest 1V portable [id number] IMPRESSION: No acute findings.
[2024-07-09 13:50] VITALS: BP 197/75; PULSE 74; RESP 20; TEMP 36.6; O2SAT 96; BMI 33.6
--- NOTE | 2024-07-09 14:14 | ECG_ITS ---
[facility] Test Date: 2024-07-09 Pat Name: Carl Khan Department: Room: Gender: Male Ward Helper: : 1955 Requested By: Olaf Reyna Order Number: [id number] Clarence MD: Zaid García M.D. Measurements Intervals [place] Rate: 69 P: 56 WV: 202 QRS: 52 QRSD: 95 T: 78 QT: 372 QTc: 399 Interpretive Statements SINUS RHYTHM WITH SINUS ARRHYTHMIA NONSPECIFIC T-WAVE ABNORMALITY Compared to ECG 07/05/2024 09:26:32 Sinus bradycardia no longer present First degree AV block no longer present T-wave abnormality still present Electronically Signed On 07-09-2024 14:28:03 CDT by Zaid García M.D. [id number]
--- NOTE | 2024-07-09 14:18 | ED_ITS ---
HPI - SOB/Dyspnea 2 General: Chief Complaint: Shortness of Breath/Dyspnea Stated Complaint: SOB Time Seen by Provider: 07/09/24 14:12 History of Present Illness: HPI Narrative: 68-year-old male patient with known COVI D infection comes in today with increased shortness of breath. Patient reports most of his symptoms are nasal and sinus related. Patient appears nontoxic. Patient appears in no pain. Patient states that he has a hard time getting his breath. Patient thinks it might needed antibiotic. Patient been ill for about 2 weeks at this time. Patient did get a azithromycin at the beginning of the episode. Patient tested positive for COVID on the . Patient has a history of high blood pressure. 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 Patient gets his routine health care at the [facility]. Related Data Home Medications Medication Instructions Recorded Confirmed cholecalciferol (vitamin D3) 50 1 tab PO DAILY 12/16/22 07/05/24 mcg (2,000 unit) tablet (Vitamin D3) famotidine 20 mg tablet 20 mg PO DAILY 12/16/22 07/05/24 lisinopril 20 mg tablet 10 mg PO DAILY 12/16/22 07/05/24 meloxicam 15 mg tablet 15 mg PO DAILY PRN pain or 12/16/22 07/05/24 inflammation sildenafil 100 mg tablet See Rx Instructions .Route .COMPLEX 12/16/22 07/05/24 rosuvastatin 20 mg tablet 10 mg PO QPM 04/17/24 07/05/24 Previous Rx's Medication Instructions Recorded Custom Molded Orthotics #1 ea 03/17/23 terbinafine HCl 1 % topical cream 1 applic topical BID 7 days #30 04/17/24 (Antifungal (terbinafine)) grams triamcinolone acetonide 0.1 % 1 applic topical TID #30 grams 05/26/24 topical cream doxycycline hyclate 100 mg capsule 100 mg PO BID 7 days #14 caps 07/09/24 prednisone 20 mg tablet 20 mg PO DAILY 7 days #7 tabs 07/09/24 Allergies Allergy/AdvReac Type Severity Reaction Status Date / Time No Known Allergies Allergy Verified 07/09/24 13:59 Review of Systems 2 General: Reports: 10 or more systems reviewed and unremarkable except in HPI and below ENMT: Reports: nasal congestion Resp: Reports: dyspnea PFSH ED 2 PFSH: Medical History Lipoma of colon Surgical History Hx of cholecystectomy H/O hernia repair H/O circumcision H/O colonoscopy (06/04/20) diverticulosis, hepatic flexure lipoma, repeat 10 years H/O esophagogastroduodenoscopy 10 years ago Family History Mother Cancer lung Denies family history of Diabetes CAD (coronary artery disease) Anesthesia complication Bleeding disorder Social History Smoking and tobacco/nicotine status: former use of tobacco/nicotine Alcohol intake: current Alcohol intake frequency: holidays/special occasions only Substance/Drug Use: never Household members: spouse Marital status: Current occupational status: retired Physical Exam 2 Const: COMMON NORMALS: alert HENMT: COMMON NORMALS: normocephalic HEAD & SCALP: normocephalic Neck/C-Spine: COMMON NORMALS: full ROM Chest: COMMONS NORMALS: normal inspection of the chest Resp: COMMON NORMALS: normal respiratory effort and clear to auscultation bilaterally AUSCULTATION: clear to auscultation bilaterally Cardio: COMMON NORMALS: regular rate RATE: regular rate GI: COMMON NORMALS: non-tender Extremity: COMMON NORMALS: normal to inspection Neuro: SENSORIUM/ORIENTATION: Yes alert Skin: COMMON NORMALS: turgor normal GENERAL SKIN EXAM: turgor normal Course 2 Vital Signs: Vital signs: Vital Signs Temperature 97.8 F 07/09/24 13:50 Pulse Rate 74 07/09/24 13:50 Respiratory Rate 20 H 07/09/24 13:50 Blood Pressure 197/75 07/09/24 13:50 Pulse Oximetry 96 07/09/24 13:50 Oxygen Delivery Me thod Room Air 07/09/24 13:50 MDM - SOB/Dyspnea Medical Decision Making 68-year-old male patient comes in today with persistent shortness of breath x 2 weeks. Patient has been diagnosed with a upper respiratory infection and COVID- 19 over the last 2 weeks. Patient was first given some azithromycin 2 weeks ago for the treatment of the sinus infection. Patient believes he may need another course of antibiotic. Patient on July 05, patient was diagnosed with COVID-19. Patient denies any chest pain. Patient appears in no acute distress. Patient appears in no pain. Differential diagnosis pneumonia, rhinosinusitis, seasonal allergies, malingering, CHF. CBC, CMP were unremarkable. BNP showed a rate at about 200 which seems to be patient's baseline. Chest x-ray was unremarkable. Patient most likely has a rhinosinusitis with bronchitis. Will go ahead and treat with some steroids and doxycycline. Patient reports understanding agreed to plan. Lab Data 07/09/24 14:18 07/09/24 14:18 Labs/Radiology: Radiology Impressions Chest X-Ray 07/09/24 13:47 IMPRESSION: No acute findings. Laboratory Results WBC 7.89 10^3/uL (3.29-11.43) 07/09/24 14:18 RBC 5.00 10^6/uL (3.85-5.65) 07/09/24 14:18 Hgb 15.40 g/dL (11.27-16.99) 07/09/24 14:18 Hct 46.0 % (37-53) 07/09/24 14:18 MCV 92.0 fl (82-101) 07/09/24 14:18 MCH 30.8 pg (27-33) 07/09/24 14:18 MCHC 33.5 g/dL (30-55) 07/09/24 14:18 RDW 11.9 % (12.1-15.1) L 07/09/24 14:18 Plt Count 195 10^3/cmm (157-399) 07/09/24 14:18 MPV 10.6 fL (7.4-10.4) H 07/09/24 14:18 Neut % (Auto) 62.7 % 07/09/24 14:18 Lymph % (Auto) 24.5 % 07/09/24 14:18 [place] % (Auto) 7.9 % 07/09/24 14:18 Eos % (Auto) 4.1 % 07/09/24 14:18 Baso % (Auto) 0.5 % 07/09/24 14:18 Neut # (Auto) 4.96 10^3/uL (1.8-7.7) 07/09/24 14:18 Lymph # (Auto) 1.9 10^3/uL (0.8-4.8) 07/09/24 14:18 [place] # (Auto) 0.6 10^3/uL (0.2-0.9) 07/09/24 14:18 Eos # (Auto) 0.3 10^3/uL (0.0-0.8) 07/09/24 14:18 Baso # (Auto) 0.0 10^3/uL (0.0-0.1) 07/09/24 14:18 Nucleated RBC % (auto) 0 % 07/09/24 14:18 Nucleated RBCs # 0.0 /100WBC 07/09/24 14:18 Sodium 140 mmol/L (136-145) 07/09/24 14:18 Potassium 4.1 mmol/L (3.5-5.1) 07/09/24 14:18 Chloride 104 mmol/L (98-107) 07/09/24 14:18 Carbon Dioxide 23 mmol/L (22-29) 07/09/24 14:18 Anion Gap 17.1 (5-19) 07/09/24 14:18 BUN 20 mg/dL (8-23) 07/09/24 14:18 Creatinine 0.9 mg/dL (0.7-1.2) 07/09/24 14:18 GFR Calculation 83.9 mL/min (90-130) L 07/09/24 14:18 Glucose 141 mg/dL (65-115) H 07/09/24 14:18 Calculated Osmolality 295 mOsm/kg (285-295) 07/09/24 14:18 Calcium 8.9 mg/dL (8.5-10.5) 07/09/24 14:18 Total Bilirubin 0.3 mg/dL (0.15-1.2) 07/09/24 14:18 AST 19 U/L (0-40) 07/09/24 14:18 ALT 34 U/L (0-41) 07/09/24 14:18 Alkaline Phosphatase 56 U/L (40-130) 07/09/24 14:18 NT-Pro-B Natriuret Pep 208 pg/mL (0-125) H 07/09/24 14:18 Total Protein 6.7 g/dL (6.6-8.7) 07/09/24 14:18 Albumin 4.1 g/dL (3.5-5.2) 07/09/24 14:18 Globulin 2.6 g/dL (1.3-4.6) 07/09/24 14:18 All radiology interpretation(s) finalized by discharge EKG Data EKG 1: I personally reviewed and interpreted this EKG as follows: EKG Interpretation Date: 07/09/24 EKG interpretation time: 14:28 Interpretation: EKG shows a sinus rhythm with a regular rate at [address] elevation or ectopy is noted. No prior exam was available for comparison. Mild artifact is present. Computer Generated Interpretation: Sinus rhythm with sinus arrhythmia. Nonspecific T wave abnormality. Compared to EKG 07/05/2024 9:26 AM, sinus bradycardia no longer present, first-degree AV block no longer present, T wave abnormality still present. Electronically signed on 07/09/2024 1425 CDT by Emmanuel García MD. Discharge Plan Discharge Patient Disposition: Home Clinical Impression: Acute rhinosinusitis, Bronchitis Condition: Stable Prescriptions: New doxycycline hyclate 100 mg capsule 100 mg PO BID 7 Days Qty: 14 0RF prednisone 20 mg tablet 20 mg PO DAILY 7 Days Qty: 7 0RF No Action sildenafil 100 mg tablet See Rx Instructions .ROUTE .COMPLEX Rx Instructions: Take 0.5 tablet by mouthonce weekly as needed for erectile dysfunction. Take 60 minutes prior to sexual activity. Limit 6 doses per 30 days. meloxicam 15 mg tablet 15 mg PO DAILY PRN (Reason: pain or inflammation) cholecalciferol (vitamin D3) [Vitamin D3] 50 mcg (2,000 unit) tablet 1 tab PO DAILY lisinopril 20 mg tablet 10 mg PO DAILY famotidine 20 mg tablet 20 mg PO DAILY (DME) Custom Molded Orthotics See Rx Instructions .Route .MEDSUPPLY Qty: 1 0RF Rx Instructions: As directed by [facility] rosuvastatin 20 mg tablet 10 mg PO QPM terbinafine HCl [Antifungal (terbinafine)] 1 % cream 1 applic topical BID 7 Days Qty: 30 2RF triamcinolone acetonide 0.1 % cream 1 applic topical TID Qty: 30 2RF Discharge Orders: Discharge ED (Routine); Ordered 07/09/24 Ordered By: Olaf Stewart Discharge Diet: Usual diet Discharge Activity: Increase activity as tolerated Patient Instructions: Acute Bronchitis (ED) Activity Restrictions/Additional Instructions: Home and rest. Drink plenty of water and fluids. Take medications as directed. Follow-up with primary care in 3 to 5 days for recheck. Return to ED for new concerns or worsening symptoms such as severe chest pain, worsening shortness of breath, or inability to hold fluids down. Coding Level of Care Code ED Passenger Agent for Mojgan Cornelius
[2024-07-09 14:22] LABS: Basophils % 0.5 %; Eosinophils # 0.3 10^3/uL (0.0-0.8); Eosinophils % 4.1 %; Lymphocytes # 1.9 10^3/uL (0.8-4.8); Lymphocytes % 24.5 %; Mean Corpuscular HGB Conc 33.5 g/dL (30-55); Mean Corpuscular Hemoglobin 30.8 pg (27-33); Mean Platelet Volume 10.6 fL (7.4-10.4); Monocytes # 0.6 10^3/uL (0.2-0.9); Monocytes % 7.9 %; Neutrophils # 4.96 10^3/uL (1.8-7.7); Neutrophils % 62.7 %; Nucleated Red Blood Cells % 0 %; Platelet Count 195 10^3/cmm (157-399); Red Cell Distribution Width 11.9 % (12.1-15.1); White Blood Count 7.89 10^3/uL (3.29-11.43)
[2024-07-09 14:49] LABS: Alanine Aminotransferase 34 U/L (0-41); Albumin Level 4.1 g/dL (3.5-5.2); Alkaline Phosphatase 56 U/L (40-130); Anion Gap 17.1 (5-19); Aspartate Amino Transferase 19 U/L (0-40); Blood Urea Nitrogen 20 mg/dL (8-23); Calcium 8.9 mg/dL (8.5-10.5); Carbon Dioxide 23 mmol/L (22-29); Chloride 104 mmol/L (98-107); Creatinine Clr Calc Pharmacy 93.0973; Globulin 2.6 g/dL (1.3-4.6); Glomerular Filtration Rate 83.9 mL/min (90-130); Glucose 141 mg/dL (65-115); NT Pro B Type Natriuretic Pept 208 pg/mL (0-125); Osmolality Calculated 295 mOsm/kg (285-295); Potassium 4.1 mmol/L (3.5-5.1); Sodium 140 mmol/L (136-145); Total Bilirubin 0.3 mg/dL (0.15-1.2); Total Protein 6.7 g/dL (6.6-8.7)
[2024-07-09] MEDS: dexamethasone 10 mg/mL INJ IM (15:07)
[2024-07-09] MEDS: doxycycline 100 mg Tablet PO (15:07)
== END 2024-07-09 15:19 | disposition home or self-care (01) ==
PROVIDERS: Emergency Medicine; Emergency Provider Nurse Practitioner Family
DX: J01.90 Acute sinusitis, unspecified (principal); J40 Bronchitis, not specified as acute or chronic; I49.8 Other specified cardiac arrhythmias; I44.0 Atrioventricular block, first degree; Z87.891 Personal history of nicotine dependence
CPT/HCPCS: 36415; 71045; 80053; 83880; 85025; 93005; 96372; 99285; J1100

== ENCOUNTER 2025-07-25 08:15 | Outpatient (CLI) | payer OTHER, SELFPAY ==
--- NOTE | 2025-07-25 08:22 | US_ITS ---
WS: [id number] ULTRASOUND SOFT TISSUES LEFT axilla HISTORY: LEFT AXILLA LYMPHADENOPATHY COMPARISON: None available. TECHNIQUE: 2-D and color Doppler imaging is submitted. Palpable area in the LEFT axilla. Ultrasound is directed to the palpable area. There is a normal appearance of the soft tissues. No distortion of fascial planes. No mass or lymph node identified. US/US soft tissue/extremity [id number] IMPRESSION: Negative ultrasound LEFT axilla. No mass identified.
== END 2025-07-25 08:16 | disposition home or self-care (01) ==
LOC: RAD 08:17
PROVIDERS: PCP Nurse Practitioner; Visit Provider Nurse Practitioner
DX: R59.0 Localized enlarged lymph nodes (principal)
CPT/HCPCS: 76882